=== PATIENT | female | born 1965 | race African-American/Black ===

== ENCOUNTER 2020-06-01 19:08 | Emergency (ER) | payer OTHER ==
[~2020-06-01] VITALS: Ht 165.1 cm; Wt 90.0 kg
[2020-06-01 22:25] VITALS: BP 150/88
== END 2020-06-01 22:27 | disposition home or self-care (01) ==
LOC: ER 19:08
DX: S40.022A Contusion of left upper arm, initial encounter (principal); I10 Essential (primary) hypertension; V49.88XA Car occupant (driver) (passenger) injured in other specified transport accidents, initial encounter; Y93.89 Activity, other specified; Y92.89 Other specified places as the place of occurrence of the external cause; Y99.8 Other external cause status
CPT/HCPCS: 71045; 99284